=== PATIENT | female | born 1975 | race Caucasian/White ===

== ENCOUNTER 2022-12-29 18:06 | Emergency (ER) | payer BC ==
[2022-12-29] MEDS ORDERED: Sodium Chloride 0.9% 10 ML Syringe FLUSH PRN (18:08)
[2022-12-29 18:25] LABS: BASOPHILS ABSOLUTE AUTO 0.01 K/uL (0.00-0.20); BASOPHILS PERCENT AUTO 0.1 % (0.0-2.0); EOSINOPHILS ABSOLUTE AUTO 0.18 K/uL (0.00-0.50); EOSINOPHILS PERCENT AUTO 2.6 % (0.0-5.0); HEMATOCRIT 42.7 % (34.0-46.0); HEMOGLOBIN 14.1 g/dL (11.7-15.5); LYMPHOCYTES ABSOLUTE AUTO 3.31 K/uL (0.50-3.50); LYMPHOCYTES PERCENT AUTO 47.1 % (10.0-50.0); MEAN CORPUSCULAR HEMOGLOBIN 27.8 pg (28.2-33.3); MEAN CORPUSCULAR VOLUME 84.1 fL (84.0-98.0); MONOCYTES ABSOLUTE AUTO 0.93 K/uL (0.00-1.00); MONOCYTES PERCENT AUTO 13.2 % (2.0-14.0); PLATELET COUNT,PLT 280 K/uL (150-350); RED BLOOD CELL COUNT 5.08 M/uL (3.77-5.09); RED CELL DISTRIBUTION WIDTH 16.9 % (11.2-14.1)
[2022-12-29 18:26] LABS: APPEARANCE,URINE CLEAR; BILIRUBIN,URINE NEGATIVE (NEGATIVE); COLOR,URINE YELLOW; GLUCOSE,URINE NEGATIVE (NEGATIVE); KETONES,URINE TRACE mg/dL (NEGATIVE); LEUKOCYTE ESTERASE,URINE NEGATIVE (NEGATIVE); NITRITE,URINE NEGATIVE (NEGATIVE); PH,URINE 5.5 (5.0-9.0); PROTEIN,URINE NEGATIVE (NEGATIVE); UROBILINOGEN,URINE 0.2 E.U./dL (0.2-1.0)
[2022-12-29] MEDS ORDERED: Naloxone 0.4 MG/ML SDV IVPUSH PRN (18:27)
[2022-12-29] MEDS: Prochlorperazine 10 MG/2 ML SDV IVPUSH ONE (18:37)
[2022-12-29 18:39] LABS: ALANINE AMINOTRANSFERASE,ALT 36 U/L (12-78); ALBUMIN 4.2 g/dL (3.4-5.0); ALKALINE PHOSPHATASE 79 IU/L (46-116); ANION GAP 13.3 meq/L (7-15); ASPARTATE AMNIOTRANSFERASE,AST 37 U/L (15-37); BILIRUBIN TOTAL 0.5 mg/dL (0.2-1.0); BLOOD UREA NITROGEN,BUN 20 mg/dL (7-18); CARBON DIOXIDE,CO2 22.7 mmol/L (21.0-32.0); CHLORIDE,CL 104 mmol/L (98-107); POTASSIUM,K 3.8 mmol/L (3.5-5.1); SODIUM,NA 140 mmol/L (136-145)
[2022-12-29 18:43] LABS: OCCULT BLOOD,URINE TRACE-INTACT (NEGATIVE); RBC,URINE 0-5 /HPF; WBC,URINE 0-5 /HPF
[2022-12-29] MEDS: fentaNYL 50 MCG/ML SDV IVPUSH ONE (18:43)
[2022-12-29 18:44] LABS: BACTERIA,URINE NOT SEEN /HPF (NONE TO FEW); EPITHELIAL CELLS,URINE NOT SEEN /LPF
[2022-12-29 18:46] LABS: CALCIUM 9.8 mg/dL (8.5-10.1); CREATININE 0.87 mg/dL (0.51-1.17); GLUCOSE RANDOM 112 mg/dL (70-99)
[2022-12-29 18:47] LABS: C-REACTIVE PROTEIN < 0.2 mg/dL (<=0.9); ESTIMATED GFR 82 mL/min (>=60)
[2022-12-29] MEDS: Sodium Chloride 0.9% 1,000 ML IV SCH (18:55)
[2022-12-29] MEDS: Iopamidol 612 MG/ML 100 ML Bottle ONE (19:46)
[2022-12-29] MEDS: Tamsulosin 0.4 MG Cap.ER PO ONE (21:25)
[2022-12-29 22:35] VITALS: BP 128/73; PULSE 50
== END 2022-12-29 21:45 | disposition home or self-care (01) ==
LOC: LL.ED 18:06
DX: N13.2 Hydronephrosis with renal and ureteral calculous obstruction (principal); Z88.0 Allergy status to penicillin; Z88.1 Allergy status to other antibiotic agents; Z88.5 Allergy status to narcotic agent; Z88.8 Allergy status to other drugs, medicaments and biological substances; Z91.041 Radiographic dye allergy status; Z91.040 Latex allergy status; Z88.6 Allergy status to analgesic agent; Z79.899 Other long term (current) drug therapy
CPT/HCPCS: 36415; 74177; 80053; 81001; 85025; 86140; 96361; 96374; 96375; 99284; 99284-25; A9270-GY; J0780; J3010; J7030; Q9967